=== PATIENT | male | born 1980 | race Caucasian/White ===

== ENCOUNTER 2021-05-29 14:44 | Emergency (ER) | payer BC ==
--- OUTSIDE RECORDS SUMMARY | 2021-05-29 14:46 | XMS REPORT | Continuity of Care Document ---
:1980 Author Organization [facility] t Address [address] [place] [address] Care Team Providers Name Role Phone PCP, DOES NOT HAVE A Primary Care Physician Unavailable Only, Db Test Attending Clinician Unavailable Roselia RUSSO Attending Clinician ROSELIA Attending Clinician Unavailable IKE DUMONT Attending Clinician Unavailable TORI DANIEL Attending Clinician Unavailable IKE DUMONT Admitting Clinician Unavailable KEITH DIAZ Admitting Clinician Unavailable Payers Payer Name Policy Type Policy Number Effective Date Expiration Date S ource Problems Condition Condition Condition Status Onset Resolution Last Treating Co mments Source Name Details Category Date Date Treatment Clinician Date No known No known Disease Unive rs active active ity of problems problems [facility] Allergies, Adverse Reactions, Alerts Allergy Allergy Status Severity Reaction(s) Onset Inactive Treating Comm ents Source Name Type Date Date Clinician Neospori Propensi Active Rash Univer s n ty to 8-11 ity of (Neomyci adverse 00:00: [place] n-Polymy reaction 00 Medica l x) s Branch NEOSPORI DRUG Active Rash Univers N 8-11 ity of (NEOMYCI 00:00: [place] N-POLYMY 00 Medical X) Branch Social History Social Habit Start Date Stop Date Quantity Comments Source Exposure to Not sure [facility] SARS-CoV-2 (event) Medica l Branch Sex Assigned At [birth year] [facility] 00:00:00 00:00:00 Medical Branch Smoking Status Start Date Stop Date Source Unknown if ever smoked [facility] Medications Ordered Filled Start Stop Current Ordering Indication Dosage Frequency Signature Comments Components Source Medication Medication Date Date Medication? Clinician (SIG) Name Name No known No Univers medications - ity of 19:08: [facility] Procedures This patient has no known procedures. Encounters Start End Encounter Admission Attending Care Care Encounter Source Date/Time Date/Time Type Type Clinicians Facility Department ID 2021-03-17 2021-03-17 Laboratory Only, Ang Db Test [facility] [id number] Univers 19:15:00 19:29:30 Only [facility] [id number] ity [facility] [id number] Chip as ELIJAH?BLEA [id number] [address] MEDICAL OFFICE BUILDING 2021-03-17 2021-03-17 Outpatient R ROSELIA [facility] [id number] [facility] 19:15:00 19:29:30 [facility] 2020-10-18 2020-10-19 Outpatient GERONIMO DUMONT [facility] [id number] MH 03:25:00 13:00:[address] [facility] 2020-10-13 2020-10-16 Inpatient E ELIO DANIELSE MED [id number] MH 01:13:00 17:55:[address] [facility] Results This patient has no known results.
[2021-05-29] MEDS ORDERED: ASPIRIN 81 MG CHEWABLE TABLET ONE (15:03)
[2021-05-29 15:38] LABS: Potassium 4.4 mmol/L (3.5-5.1); Troponin High Sensitivity 6.8 pg/mL (<58.9)
[2021-05-29 15:40] LABS: Absolute Lymphocytes (CBC) 1.4 K/uL (0.7-4.9); Hematocrit 39.7 % (39.6-49.0); Lymphocytes % 17.2 % (15.3-44.8); MPV 9.1 fL (7.6-11.3); RBC Red Blood Cell Count 4.42 M/uL (4.33-5.43)
[2021-05-29 15:41] LABS: Protime INR 1.01
--- NOTE | 2021-05-29 16:05 | RAD REPORT ---
EXAM DESCRIPTION: RAD - Chest Single View - 05/29/2021 3:52 pm CLINICAL HISTORY: CHEST PAIN COMPARISON: Two view chest 06/22/2009 TECHNIQUE: AP portable chest image was obtained 05/29/2021 3:52 pm . FINDINGS: Lungs are clear. Heart and vasculature are normal. No measurable pleural effusion and no p neumothorax. No acute bony abnormality seen. No acute aortic findings suspected. IMPRESSION: No acute cardiopulmonary process. No significant change from comparison study.
[2021-05-29] MEDS ORDERED: MAGNES/ALUMIN/SIMET 30ML UCUP ONE (16:16)
[2021-05-29] MEDS ORDERED: LIDOCAINE VISCOUS 2% SOLN 15 ML UDC ONE (16:17)
--- NOTE | 2021-05-29 16:38 | ER ---
Nurse's Notes [facility] Name: Naveed Cowart Age: 40 yrs Sex: Male : 1980 Arrival Date: 05/29/2021 Time: 14:48 Bed 3 Private MD: Diagnosis: Chest pain, unspecified;Gastro-esophageal reflux disease with esophagitis Presentation: 05/29 14:48 Chief complaint: Patient states: chest pain. Coronavirus screen: Client denies travel cb5 out of the [place] in the last 14 days. At this time, the client does not indicate any symptoms associated with coronavirus-19. Ebola Screen: Patient negative for fever greater than or equal to 101.5 degrees Fahrenheit, and additional compatible Ebola Virus Disease symptoms Patient denies exposure to infectious person. Patient denies travel to an Ebola-affected area in the 21 days before illness onset. Initial Sepsis Screen: Does the patient meet any 2 criteria? No. Patient's initial sepsis screen is negative. Does the patient have a suspected source of infection? No. Patient's initial sepsis screen is negative. Risk Assessment: Do you want to hurt yourself or someone else? Patient reports no desire to harm self or others. 14:48 Method Of Arrival: EMS: [facility] cb5 14:48 Acuity: GABO 3 cb5 14:48 Care prior to arrival: Medication(s) given: ASA, 81 mg, x 4. ap3 16:20 Onset of symptoms was May 29, 2021. ap3 Triage Assessment: 14:49 General: Appears in no apparent distress. comfortable, Behavior is calm, cooperative, cb5 appropriate for age. Pain: Complains of pain in chest Pain currently is 5 out of 10 on a pain scale. Historical: - Allergies: 15:03 Neosporin ([id number]); ap3 - Home Meds: 15:03 prasugrel 10 mg oral tab [Active]; Metoprolol Tartrate Oral [Active]; bupropion HCl 150 ap3 mg Oral Tb24 [Active]; lisinopril 10 mg Oral tab [Active]; aspirin 81 mg Oral tab [Active]; - PMHx: 15:06 Myocardial infarction; ap3 - PSHx: 15:06 cardiac stents; ap3 - Immunization history:: Client reports receiving the 2nd dose of the Covid vaccine. - Social history:: Smoking status: Patient reports the use of cigarette tobacco products, smokes one-half pack cigarettes per day. Screenin:50 Abuse screen: Denies threats or abuse. Denies injuries from another. Nutritional cb5 screening: No deficits noted. Tuberculosis screening: No symptoms or risk factors identified. 15:08 Fall Risk None identified. ap3 Assessment: 16:15 Reassessment: No changes from previously documented assessment. jg9 16:20 Reassessment: Patient states feeling better. Patient states symptoms have improved. ap3 Vital Signs: 14:48 BP 135 / 84; Pulse 80; Resp 16; Temp 98.6; Pulse Ox 99% ; Weight 74.84 kg; Height 5 ft. cb5 8 in. (172.72 cm); Pain 5/10; 16:15 BP 128 / 90; Pulse 67; Resp 14 S; Pulse Ox 98% on R/A; Pain 2/10; jg9 14:48 Body Mass Index 25.09 (74.84 kg, 172.72 cm) cb5 ED Course: 14:48 Patient arrived in ED. cb5 14:48 Antonio Ng PA is PHCP. jr8 14:48 Reinier Vera MD is Attending Physician. jr8 14:49 Triage completed. cb5 14:50 Arm band placed on right wrist. EKG completed in triage. Results shown to MD. cb5 15:07 Maintain EMS IV. Dressing intact. Good blood return noted. Site clean \T\ dry. Gauge \T\ ap 3 site: 20g left AC. 15:08 Patient has correct armband on for positive identification. Placed in gown. Bed in low ap3 position. Call light in reach. Side rails up X2. Adult w/ patient. quality assurance monitor final on. Pulse ox on. NIBP on. Door closed. Noise minimized. 15:21 Caitlin Thapa, [place] is Primary Nurse. ap3 15:54 XRAY Chest (1 view) In Process Unspecified. EDMS 16:14 No apparent distress. Resting quietly. jg9 16:20 Pt visited by . ap3 16:36 Nurse Practitioner and/or Physician Nursing Secretary to see patient. ap3 16:49 No provider procedures requiring assistance completed. IV discontinued, intact, ap3 bleeding controlled, No redness/swelling at site. Pressure dressing applied. Administered Medications: 15:21 Not Given (pt recvd in EMS): Aspirin Chewable Tablet 324 mg PO once; 81 mg tablets x 4 ap3 16:18 Drug: GI Cocktail without - (Maalox Suspension 30 ml, Lidocaine Liquid 2 % 15 ap3 ml) Route: PO; 16:49 Follow up: Response: No adverse reaction; Marked relief of symptoms ap3 Outcome: 16:38 Discharge ordered by MD. garcia 16:49 Discharged to home ambulatory, with family. ap3 16:49 Condition: good 16:49 Discharge instructions given to patient, family, Instructed on discharge instructions, follow up and referral plans. Demonstrated understanding of instructions, follow-up care. 16:49 Patient left the ED. ap3 Signatures: Dispatcher [employer] EDMS Antonio Ng PA PA jr8 Caitlin Thapa RN RN ap3 Jacquelyn Rutherford RN RN jg9 Shira Carroll RN RN cb5
--- NOTE | 2021-05-29 16:38 | EDPHYS ---
Physician Documentation [facility] Name: Naveed Cowart Age: 40 yrs Sex: Male : 1980 Arrival Date: 05/29/2021 Time: 14:48 Bed 3 Private MD: ED Physician Reinier Vera HPI: 05/29 15:24 This 40 yrs old Male presents to ER via EMS with complaints of Chest Pain. jr8 15:24 The patient or guardian reports chest pain that is located primarily in the substernal jr8 area. The pain does not radiate. Associated signs and symptoms: Pertinent positives: diaphoresis, nausea. The chest pain is described as burning, a pressure. Duration: The patient or guardian reports a single episode, that is still ongoing, and unchanged, Has been going on for 3 days now. Modifying factors: The symptoms are alleviated by nothing. the symptoms are aggravated by nothing. Severity of pain: At its worst the pain was moderate in the emergency department the pain is unchanged. The patient has experienced a previous episode. The patient has not recently seen a physician. Patient stated that he had a myocardial infarction this past October. At that time and felt overwhelmingly fatigued. Went in to be evaluated and found that he was having an active ME at that time. Over the past 3 days has had uncontrolled indigestion/reflux sensation. Today has started to have chest pressure with nausea and cold sweats. Patient has tried multiple [id number] medications for reflux thinking that that is what it was but without relief. Has been compliant on all other meds given by his director organizational and primary care physician.. Historical: - Allergies: 15:03 Neosporin ([id number]); ap3 - Home Meds: 15:03 prasugrel 10 mg oral tab [Active]; Metoprolol Tartrate Oral [Active]; bupropion HCl 150 ap3 mg Oral Tb24 [Active]; lisinopril 10 mg Oral tab [Active]; aspirin 81 mg Oral tab [Active]; - PMHx: 15:06 Myocardial infarction; ap3 - PSHx: 15:06 cardiac stents; ap3 - Immunization history:: Client reports receiving the 2nd dose of the Covid vaccine. - Social history:: Smoking status: Patient reports the use of cigarette tobacco products, smokes one-half pack cigarettes per day. ROS: 15:24 Eyes: Negative for injury, pain, redness, and discharge, ENT: Negative for injury, jr8 pain, and discharge, Neck: Negative for injury, pain, and swelling, Respiratory: Negative for shortness of breath, cough, wheezing, and pleuritic chest pain, Back: Negative for injury and pain, MS/Extremity: Negative for injury and deformity, Skin: Negative for injury, rash, and discoloration, Neuro: Negative for headache, weakness, numbness, tingling, and seizure. 15:24 Cardiovascular: Positive for chest pain, Negative for edema, orthopnea, palpitations, paroxysmal nocturnal dyspnea. 15:24 Abdomen/GI: Positive for nausea. Exam: 15:24 Constitutional: This is a well developed, well nourished patient who is awake, alert, jr8 and in no acute distress. Neck: Trachea midline, no thyromegaly or masses palpated, and no cervical lymphadenopathy. Supple, full range of motion without nuchal rigidity, or vertebral point tenderness. No Meningismus. Cardiovascular: Regular rate and rhythm with a normal S1 and S2. No gallops, murmurs, or rubs. Normal PMI, no JVD. No pulse deficits. Respiratory: Lungs have equal breath sounds bilaterally, clear to auscultation and percussion. No rales, rhonchi or wheezes noted. No increased work of breathing, no retractions or nasal flaring. Abdomen/GI: Soft, with mild epigastric tenderness. Normal bowel sounds. No distension or tympany. No guarding or rebound. No evidence of tenderness throughout. Back: No spinal tenderness. No costovertebral tenderness. Full range of motion. Skin: Warm, dry with normal turgor. Normal color with no rashes, no lesions, and no evidence of cellulitis. MS/ Extremity: Pulses equal, no cyanosis. Neurovascular intact. Full, normal range of motion. Neuro: Awake and alert, GCS 15, oriented to person, place, time, and situation. Motor strength 5/5 in all extremities. Sensory grossly intact. 15:24 ECG was reviewed by the Attending Physician. Vital Signs: 14:48 BP 135 / 84; Pulse 80; Resp 16; Temp 98.6; Pulse Ox 99% ; Weight 74.84 kg; Height 5 ft. cb5 8 in. (172.72 cm); Pain 5/10; 16:15 BP 128 / 90; Pulse 67; Resp 14 S; Pulse Ox 98% on R/A; Pain 2/10; jg9 14:48 Body Mass Index 25.09 (74.84 kg, 172.72 cm) cb5 MDM: 14:49 Patient medically screened. [facility] 16:36 Data reviewed: vital signs, nurses notes, lab test result(s), EKG, radiologic studies, jr8 plain films. Counseling: I had a detailed discussion with the patient and/or guardian regarding: the historical points, exam findings, and any diagnostic results supporting the discharge/admit diagnosis, lab results, radiology results, the need for outpatient follow up, a director organizational, to return to the emergency department if symptoms worsen or persist or if there are any questions or concerns that arise at home. Response to treatment: the patient's symptoms have resolved after treatment. ED course: Patient completely pain-free after GI cocktail. Remains hemodynamically stable at this time. Discussed with patient that his high-sensitivity troponin was 6.8 which is well within normal limits especially for having chest pain for the past 3 to 4 days. EKG without acute finding as well. Recommended seeing his director organizational which patient has an appointment with tomorrow morning. If you to get worsening point time to come back. Patient given plan at this time.. 05/29 14:57 Order name: Basic Metabolic Panel; Complete Time: 16:05/29 14:57 Order name: CBC with Diff; Complete Time: 16:05/29 14:57 Order name: Magnesium; Complete Time: 16:05/29 14:57 Order name: NT PRO-BNP; Complete Time: 16:05/29 14:57 Order name: PT-INR; Complete Time: 16:05/29 14:57 Order name: Troponin HS; Complete Time: 16:05/29 14:57 Order name: XRAY Chest (1 view); Complete Time: 16:09 05/29 14:57 Order name: EKG; Complete Time: 14:58 05/29 14:57 Order name: Cardiac monitoring; Complete Time: 14:59 05/29 14:57 Order name: EKG - Nurse/Tech; Complete Time: 14:59 05/29 14:57 Order name: IV Saline Lock; Complete Time: 14:59 8 05/29 14:57 Order name: Labs collected and sent; Complete Time: 15:21 8 05/29 14:57 Order name: O2 Per Protocol; Complete Time: 14:8 05/29 14:57 Order name: O2 Sat Monitoring; Complete Time: 14:59 EC:24 Rate is 59 beats/min. Rhythm is regular, Sinus bradycardia. QRS [place] is Normal. [place] jr8 interval is normal at 168 msec. QRS interval is normal at 76 msec. QT interval is normal at 352 msec. Q waves are Present in leads V1, V2. T waves are Inverted in lead V1. No ST changes noted. Clinical impression: Anterior ME - age indeterminate. Interpreted by me. Reviewed by me. Administered Medications: 15:21 Not Given (pt recvd in EMS): Aspirin Chewable Tablet 324 mg PO once; 81 mg tablets x 4 ap3 16:18 Drug: GI Cocktail without - (Maalox Suspension 30 ml, Lidocaine Liquid 2 % 15 ap3 ml) Route: PO; 16:49 Follow up: Response: No adverse reaction; Marked relief of symptoms ap3 Disposition: 18:46 Co-signature as Attending Physician, Reinier Vera MD. rn Disposition Summary: 05/29/21 16:38 Discharge Ordered Location: Home [facility] Problem: new jr8 Symptoms: have improved jr8 Condition: Stable jr8 Diagnosis - Chest pain, unspecified jr8 - Gastro-esophageal reflux disease with esophagitis jr8 Followup: jr8 - With: Private Physician - When: Tomorrow - Reason: Recheck today's complaints, Continuance of care, Re-evaluation by your physician Discharge Instructions: - Discharge Summary Sheet jr8 - Nonspecific Chest Pain, Adult jr8 - Gastroesophageal Reflux Disease, Adult jr8 Forms: - Medication Reconciliation Form jr8 - Thank You Letter jr8 - Antibiotic Education jr8 - Prescription Opioid Use jr8 Signatures: Dispatcher [employer] EDReinier Boss MD MD rn Roszak, Josh, PA PA jr8 Caitlin Thapa RN RN ap3
[2021-05-29 17:27] VITALS: TEMP 98.6
[2021-05-29 17:29] VITALS: BP 128/90; O2SAT 98
--- NOTE | 2021-05-30 07:44 | EKG ---
Test Date: 2021-05-29 Test Time: 14:46:24 Security Shift Manager: RAMOS MEASUREMENT RESULTS: Intervals: Rate: 59 NH: 168 QRSD: 76 QT: 356 QTc: 352 [place]: P: 20 NH: 168 QRS: 89 T: 64 INTERPRETIVE STATEMENTS: Sinus bradycardia Low voltage QRS Septal infarct, age undetermined Abnormal ECG No previous ECG available for comparison Electronically Signed On 05-30-21 07:41:31 CDT by Tio Disla
== END 2021-05-29 16:49 | disposition home or self-care (01) ==
LOC: ER 14:44
DX: K21.00 Gastro-esophageal reflux disease with esophagitis, without bleeding (principal); I25.2 Old myocardial infarction; F17.210 Nicotine dependence, cigarettes, uncomplicated; Z95.818 Presence of other cardiac implants and grafts
CPT/HCPCS: 36415; 71045; 80048; 83735; 83880; 84484; 85025; 85610; 93005; 99284